=== PATIENT | female | born 1940 | race Caucasian/White ===

== ENCOUNTER 2016-08-25 11:18 | Emergency (ER) | payer MEDICARE, OTHER | END 2016-08-25 12:22 | disposition other institution (70) | LOC: ER 11:18 | DX: S42.321A Displaced transverse fracture of shaft of humerus, right arm, initial encounter for closed fracture (principal); W01.0XXA Fall on same level from slipping, tripping and stumbling without subsequent striking against object, initial encounter; Y92.242 Post office as the place of occurrence of the external cause; Z79.82 Long term (current) use of aspirin | CPT/HCPCS: 29105; 73080; 99070; 99284; 99284-25 ==